=== PATIENT | male | born 1955 | race African-American/Black ===

== ENCOUNTER 2017-09-01 17:48 | Inpatient (IN) | payer OTHER ==
[~2017-09-01] VITALS: Ht 172.7 cm; Wt 102.7 kg
[2017-09-01] MEDS ORDERED: SODIUM CHLORIDE 0.9% 1,000 ML IVB ONE (19:49)
[2017-09-01 19:53] LABS: Hematocrit 52.1 % (41.0-53.0); Mean Corpuscular Hemoglobin 32.1 pg (28.0-32.0); Mean Corpuscular Hgb Conc. 32.6 g/dL (32.0-36.0); Mean Corpuscular Volume 98.5 fL (80.0-100.0); Platelet Count (auto) 342 10^3/uL (140-450); Red Blood Cells 5.29 10^6/uL (4.5-5.90); Red Cell Distribution Width 12.8 % (11.8-14.3); White Blood Cell 24.2 10^3/uL (4.4-10.8)
[2017-09-01 20:02] LABS: Band Neutrophils % (manual) 0; Basophils % (manual) 0 (0.0-2.0); Blast Cells 0; Eosinophils % (manual) 0 (0-7); Metamyelocytes % 0; Myelocytes % 0; Promyelocytes % 0; Reactive Lymphocytes 0
[2017-09-01 20:05] LABS: Lymphocytes % (manual) 9 (10.0-50.0); Monocytes % (manual) 7 (0-12)
[2017-09-01 20:06] LABS: Albumin 3.5 g/dL (3.4-5.0); BUN/Creatinine Ratio 8.8; Calcium 8.6 mg/dL (8.5-10.1); Potassium 3.8 mmol/L (3.5-5.1)
[2017-09-01 20:09] LABS: Bilirubin, Total 0.7 mg/dL (0.2-1.0); Total Protein 7.4 g/dL (6.4-8.2)
[2017-09-01 20:32] LABS: INR 1.07 (0.9-1.15); Partial Thromboplastin Time 27.5 sec (23.78-33.04); Prothrombin Time 11.4 sec (9.27-12.13)
[2017-09-01 20:50] LABS: Magnesium 1.9 mg/dL (1.6-2.6)
[2017-09-01] MEDS ORDERED: ONDANSETRON HCL 4 MG/2 ML VIAL IV ONE (21:00)
[2017-09-01] MEDS ORDERED: MORPHINE SULFATE 8mg/ml INJ SDV IV ONE (21:00)
[2017-09-01] MEDS ORDERED: ACETAMINOPHEN 325 MG TAB PO PRN (21:15)
[2017-09-01] MEDS ORDERED: cefTRIAXone 1GM/10ml IVPUSH 10 ML IV ONE (21:15)
[2017-09-01] MEDS ORDERED: metroNIDAZOLE 500MG/100ML 100 ML IV ONE (21:15)
[2017-09-01] MEDS ORDERED: MORPHINE SULFATE 8mg/ml INJ SDV IV PRN (21:15)
[2017-09-01] MEDS ORDERED: NITROGLYCERIN 0.4 MG SL TAB SL PRN (21:15)
[2017-09-01 21:31] LABS: Urine Bacteria NONE SEEN /hpf (None Seen); Urine Blood Negative /uL (Negative); Urine Hyaline Cast FEW /lpf (0 - 2); Urine Mucus FEW (None Seen); Urine Specific Gravity 1.024 (1.001-1.035); Urine WBC 4 /hpf (0 - 3)
[2017-09-01] MEDS: SODIUM CHLORIDE 0.9% 1,000 ML IV SCH (21:38)
[2017-09-01] MEDS: metroNIDAZOLE 500MG/100ML 100 ML IV SCH (21:38)
[2017-09-01] MEDS ORDERED: GASTROGRAFIN 120 ML SOL ONE (21:43)
[2017-09-01 23:40] VITALS: BP 94/62
[2017-09-01 23:53] LABS: Lactic Acid w/Reflex 7.5 mmol/L (0.4-2.0)
[2017-09-02 05:00] VITALS: BP 101/80
[2017-09-02] MEDS: metroNIDAZOLE 500MG/100ML 100 ML IV SCH ×3 (06:03→22:14)
[2017-09-02 06:46] LABS: Red Blood Cells 5.51 10^6/uL (4.5-5.90)
[2017-09-02 06:48] LABS: Hematocrit 51.9 % (41.0-53.0); Hemoglobin 18.2 g/dL (13.5-17.5); Mean Corpuscular Volume 94.2 fL (80.0-100.0); Platelet Count (auto) 391 10^3/uL (140-450); Red Cell Distribution Width 12.5 % (11.8-14.3)
[2017-09-02 06:58] LABS: White Blood Cell 33.3 10^3/uL (4.4-10.8)
[2017-09-02 06:59] LABS: Basophils % (manual) 0 (0.0-2.0); Eosinophils % (manual) 0 (0-7); Metamyelocytes % 0
[2017-09-02 07:00] LABS: Blast Cells 0; Myelocytes % 0; Promyelocytes % 0; Reactive Lymphocytes 0
[2017-09-02 07:05] LABS: Albumin 3.4 g/dL (3.4-5.0); BUN/Creatinine Ratio 11.4; Calcium 8.6 mg/dL (8.5-10.1)
[2017-09-02 07:08] LABS: Bilirubin, Total 0.6 mg/dL (0.2-1.0); Total Protein 7.3 g/dL (6.4-8.2)
[2017-09-02] MEDS ORDERED: LEV50T PO (07:20)
[2017-09-02 08:19] VITALS: BP 142/107
[2017-09-02] MEDS: SODIUM CHLORIDE 0.9% 1,000 ML IV SCH (08:22)
[2017-09-02] MEDS: PANTOPRAZOLE 40 MG/10 ML VIAL IV SCH (09:21)
[2017-09-02] MEDS: ENOXAPARIN SOD 40 MG/0.4 ML SYRINGE SC SCH (09:22)
[2017-09-02] MEDS: MORPHINE SULFATE 8mg/ml INJ SDV IV PRN ×2 (09:32→22:15)
[2017-09-02] MEDS ORDERED: SODIUM CHLORIDE 0.9% 1,000 ML IV ONE (10:45)
[2017-09-02 11:04] LABS: Band Neutrophils % (manual) 3
[2017-09-02 11:05] LABS: Lymphocytes % (manual) 11 (10.0-50.0); Monocytes % (manual) 13 (0-12)
[2017-09-02] MEDS ORDERED: PIPERACILLIN-TAZOB 3.375GM 100 ML IV ONE (13:45)
[2017-09-02 14:20] VITALS: BP 100/57
[2017-09-02] MEDS: D5W/ SOD CHL 0.9%/KCL 20MEQ 1,000 ML IV SCH (15:20)
[2017-09-02 17:18] VITALS: BP 153/77
[2017-09-02] MEDS ORDERED: PIPERACILLIN-TAZOB 3.375GM 100 ML IV SCH (18:00)
[2017-09-02] MEDS: PIPERACILLIN-TAZOB 3.375GM 100 ML IV SCH (18:04)
[2017-09-02 20:00] VITALS: BP 118/66
[2017-09-02 22:00] VITALS: BP 118/66
[2017-09-02] MEDS ORDERED: cefTRIAXone 1GM/10ml IVPUSH 10 ML IV SCH (22:00)
[2017-09-03] MEDS: PIPERACILLIN-TAZOB 3.375GM 100 ML IV SCH ×5 (00:03→23:33)
[2017-09-03] MEDS: D5W/ SOD CHL 0.9%/KCL 20MEQ 1,000 ML IV SCH ×4 (00:04→23:34)
[2017-09-03 05:00] VITALS: BP 114/63
[2017-09-03] MEDS: metroNIDAZOLE 500MG/100ML 100 ML IV SCH ×3 (05:38→21:17)
[2017-09-03 06:27] LABS: Basophils # (auto) 0.1 uL; Basophils % (auto) 0.3 % (0.0-2.0); Eosinophils # (auto) 0 uL; Hematocrit 35.7 % (41.0-53.0); Hemoglobin 12.5 g/dL (13.5-17.5); Lymphocytes # (auto) 2.6 uL; Lymphocytes % (auto) 11.9 % (10.0-50.0); Mean Corpuscular Hemoglobin 32.2 pg (28.0-32.0); Mean Corpuscular Hgb Conc. 34.9 g/dL (32.0-36.0); Mean Corpuscular Volume 92.1 fL (80.0-100.0); Monocytes # (auto) 2.5 uL; Monocytes % (auto) 11.7 % (0.0-12.0); Neutrophils # (auto) 16.4 uL; Neutrophils % (auto) 76.1 % (37.0-80.0); Nucleated Red Blood Cells % 0.1 %; Platelet Count (auto) 287 10^3/uL (140-450); Red Blood Cells 3.87 10^6/uL (4.5-5.90); Red Cell Distribution Width 12.4 % (11.8-14.3); White Blood Cell 21.5 10^3/uL (4.4-10.8)
[2017-09-03 06:41] LABS: Albumin 2.9 g/dL (3.4-5.0); Calcium 8.1 mg/dL (8.5-10.1); Potassium 4.2 mmol/L (3.5-5.1)
[2017-09-03 06:42] LABS: BUN/Creatinine Ratio 19.5
[2017-09-03 06:45] LABS: Bilirubin, Total 0.8 mg/dL (0.2-1.0); Total Protein 6.1 g/dL (6.4-8.2)
[2017-09-03 09:00] VITALS: BP 126/88
[2017-09-03] MEDS: PANTOPRAZOLE 40 MG/10 ML VIAL IV SCH (09:52)
[2017-09-03] MEDS: ENOXAPARIN SOD 40 MG/0.4 ML SYRINGE SC SCH (09:52)
[2017-09-03 13:00] VITALS: BP 109/62
[2017-09-03 16:38] VITALS: BP 103/57
[2017-09-03] MEDS: MORPHINE SULFATE 8mg/ml INJ SDV IV PRN (21:17)
[2017-09-03 22:04] VITALS: BP 95/71
[2017-09-04] VITALS (17 sets, daily range): BP systolic 82–119; BP diastolic 28–77
[2017-09-04] MEDS: metroNIDAZOLE 500MG/100ML 100 ML IV SCH ×3 (05:10→21:09)
[2017-09-04 06:19] LABS: Basophils # (auto) 0.1 uL; Basophils % (auto) 0.4 % (0.0-2.0); Eosinophils # (auto) 0.1 uL; Eosinophils % (auto) 0.5 % (0.0-7.0); Hematocrit 32.6 % (41.0-53.0); Hemoglobin 11.2 g/dL (13.5-17.5); Lymphocytes # (auto) 2.4 uL; Mean Corpuscular Hemoglobin 32.4 pg (28.0-32.0); Mean Corpuscular Hgb Conc. 34.3 g/dL (32.0-36.0); Mean Corpuscular Volume 94.4 fL (80.0-100.0); Monocytes # (auto) 2.1 uL; Monocytes % (auto) 13.8 % (0.0-12.0); Neutrophils # (auto) 10.4 uL; Neutrophils % (auto) 69.3 % (37.0-80.0); Nucleated Red Blood Cells % 0.2 %; Platelet Count (auto) 267 10^3/uL (140-450); Red Blood Cells 3.46 10^6/uL (4.5-5.90); Red Cell Distribution Width 12.5 % (11.8-14.3)
[2017-09-04] MEDS: PIPERACILLIN-TAZOB 3.375GM 100 ML IV SCH ×3 (06:28→18:24)
[2017-09-04 06:43] LABS: BUN/Creatinine Ratio 9.7; Bilirubin, Total 1.3 mg/dL (0.2-1.0); Calcium 8.3 mg/dL (8.5-10.1); Potassium 3.9 mmol/L (3.5-5.1); Total Protein 6.1 g/dL (6.4-8.2)
[2017-09-04] MEDS: D5W/ SOD CHL 0.9%/KCL 20MEQ 1,000 ML IV SCH ×2 (07:25→18:22)
[2017-09-04] MEDS: ENOXAPARIN SOD 40 MG/0.4 ML SYRINGE SC SCH (09:02)
[2017-09-04] MEDS: PANTOPRAZOLE 40 MG/10 ML VIAL IV SCH (09:43)
[2017-09-04] MEDS ORDERED: ceFAZolin 1GM/100ML 100 ML IV ONE (09:51)
[2017-09-04] MEDS ORDERED: HYDROmorphone HCL 2 MG/ML VL ONE (11:44)
[2017-09-04] MEDS ORDERED: fentaNYL CITRATE 100 MCG/2 ML VL ONE (11:44)
[2017-09-04] MEDS ORDERED: MIDAZOLAM HCL 1MG/1ML-2 ML VIAL ONE ×2 (11:45→15:03)
[2017-09-04] MEDS ORDERED: ROCURONIUM 10MG/ML 10ML VIAL IV ONE (11:45)
[2017-09-04] MEDS ORDERED: PROPOFOL 10 MG/ML 20 ML IV ONE (11:45)
[2017-09-04] MEDS ORDERED: fentaNYL CITRATE 10 ML ONE (11:45)
[2017-09-04] MEDS ORDERED: ONDANSETRON HCL 4 MG/2 ML VIAL ONE (11:45)
[2017-09-04] MEDS ORDERED: SUCCINYLCHOLINE CHLORIDE 20 MG/ML 10ML VIAL IV ONE (12:10)
[2017-09-04] MEDS ORDERED: METOCLOPRAMIDE HCL 5MG/ml INJ 2ml VIAL IV ONE (12:15)
[2017-09-04] MEDS ORDERED: HYDROmorphone HCL 2 MG/ML VL IV PRN (12:15)
[2017-09-04] MEDS ORDERED: POVIDONE IODINE 10 % TOPICAL OINT 30GM TOP ONE (12:31)
[2017-09-04] MEDS ORDERED: GLYCOPYRROLATE 0.2 MG/ML 1ML VIAL ONE (13:23)
[2017-09-04] MEDS ORDERED: NEOSTIGMINE 1 MG/ML INJ (10mg/10ML VIAL) ONE (13:23)
[2017-09-04] MEDS ORDERED: MORPHINE SULFATE INJECTION 1 ML ONE (15:03)
[2017-09-04] MEDS ORDERED: MORPHINE SULFATE 8mg/ml INJ SDV IV PRN (15:15)
[2017-09-04] MEDS ORDERED: NITROGLYCERIN 0.4 MG SL TAB SL PRN (15:15)
[2017-09-04 15:54] LABS: Basophils # (auto) 0.1 uL; Basophils % (auto) 0.6 % (0.0-2.0); Eosinophils # (auto) 0.1 uL; Eosinophils % (auto) 0.5 % (0.0-7.0); Hematocrit 35.8 % (41.0-53.0); Hemoglobin 12.2 g/dL (13.5-17.5); Lymphocytes # (auto) 2.8 uL; Lymphocytes % (auto) 21.3 % (10.0-50.0); Mean Corpuscular Hemoglobin 32.4 pg (28.0-32.0); Mean Corpuscular Volume 95.4 fL (80.0-100.0); Monocytes # (auto) 1.3 uL; Monocytes % (auto) 9.9 % (0.0-12.0); Neutrophils # (auto) 8.9 uL; Neutrophils % (auto) 67.7 % (37.0-80.0); Nucleated Red Blood Cells % 0.2 %; Platelet Count (auto) 302 10^3/uL (140-450); Red Blood Cells 3.75 10^6/uL (4.5-5.90); Red Cell Distribution Width 12.4 % (11.8-14.3); White Blood Cell 13.2 10^3/uL (4.4-10.8)
[2017-09-04] MEDS ORDERED: MIDAZOLAM DRIP 50 mg/50mL 50 ML IV ONE (15:54)
[2017-09-04 16:01] LABS: Anion Gap 10 (5-15); Blood Urea Nitrogen 8 mg/dL (7-18); Carbon Dioxide 24 mmol/L (21-32); Chloride 112 mmol/L (98-107); GFR African American 111 mL/min; GFR Non-African American 91 mL/min; Glucose 186 mg/dL (74-106); Potassium 3.1 mmol/L (3.5-5.1); Sodium 146 mmol/L (136-145)
[2017-09-04] MEDS: MIDAZOLAM DRIP 50 mg/50mL 50 ML IV SCH (17:35)
[2017-09-04] MEDS: MORPHINE SULFATE 8mg/ml INJ SDV IV PRN (18:22)
[2017-09-04] MEDS ORDERED: POTASSIUM CHL 20MEQ/100ML 100 ML IV ONE (18:45)
[2017-09-05] VITALS (57 sets, daily range): BP systolic 95–131; BP diastolic 52–88
[2017-09-05] MEDS: MIDAZOLAM DRIP 50 mg/50mL 50 ML IV SCH (01:30)
[2017-09-05] MEDS: D5W/ SOD CHL 0.9%/KCL 20MEQ 1,000 ML IV SCH ×3 (03:29→13:34)
[2017-09-05 04:11] LABS: Basophils # (auto) 0.1 uL; Basophils % (auto) 0.9 % (0.0-2.0); Eosinophils # (auto) 0.1 uL; Eosinophils % (auto) 0.4 % (0.0-7.0); Hematocrit 35.9 % (41.0-53.0); Hemoglobin 12.4 g/dL (13.5-17.5); Mean Corpuscular Hemoglobin 32.2 pg (28.0-32.0); Mean Corpuscular Hgb Conc. 34.5 g/dL (32.0-36.0); Mean Corpuscular Volume 93.3 fL (80.0-100.0); Monocytes # (auto) 1.6 uL; Monocytes % (auto) 11.9 % (0.0-12.0); Neutrophils # (auto) 9.7 uL; Neutrophils % (auto) 71.8 % (37.0-80.0); Nucleated Red Blood Cells % 0.1 %; Platelet Count (auto) 235 10^3/uL (140-450); Red Blood Cells 3.85 10^6/uL (4.5-5.90); Red Cell Distribution Width 12.4 % (11.8-14.3); White Blood Cell 13.5 10^3/uL (4.4-10.8)
[2017-09-05 04:41] LABS: Alanine Aminotransferase 21 U/L (16-61); Albumin 2.8 g/dL (3.4-5.0); Alkaline Phosphatase 59 U/L (45-117); Anion Gap 8 (5-15); Aspartate Aminotransferase 31 U/L (15-37); BUN/Creatinine Ratio 7.4; Blood Urea Nitrogen 7 mg/dL (7-18); Calcium 7.7 mg/dL (8.5-10.1); Carbon Dioxide 25 mmol/L (21-32); Chloride 115 mmol/L (98-107); GFR African American 104 mL/min; GFR Non-African American 86 mL/min; Glucose 130 mg/dL (74-106); Potassium 4.5 mmol/L (3.5-5.1); Sodium 148 mmol/L (136-145); Total Protein 5.8 g/dL (6.4-8.2)
[2017-09-05] MEDS: metroNIDAZOLE 500MG/100ML 100 ML IV SCH ×3 (06:00→23:17)
[2017-09-05] MEDS: PIPERACILLIN-TAZOB 3.375GM 100 ML IV SCH ×4 (06:00→17:46)
[2017-09-05] MEDS ORDERED: MORPHINE SULFATE 8mg/ml INJ SDV IV ONE (08:45)
[2017-09-05] MEDS: PANTOPRAZOLE 40 MG/10 ML VIAL IV SCH (09:46)
[2017-09-05] MEDS: ENOXAPARIN SOD 60 MG/0.6 ML SYRINGE SC SCH (09:47)
[2017-09-05] MEDS: MORPHINE SULFATE 8mg/ml INJ SDV IV PRN ×2 (13:49→23:18)
[2017-09-05] MEDS ORDERED: MORPHINE SULFATE 4 MG/ML SYR/VIAL ONE (23:10)
[2017-09-05] MEDS: ONDANSETRON HCL 4 MG/2 ML VIAL IV PRN (23:18)
[2017-09-06] MEDS: PIPERACILLIN-TAZOB 3.375GM 100 ML IV SCH ×4 (00:09→18:43)
[2017-09-06] MEDS: D5W/ SOD CHL 0.9%/KCL 20MEQ 1,000 ML IV SCH ×4 (02:31→21:51)
[2017-09-06 05:41] VITALS: BP 100/58
[2017-09-06] MEDS: metroNIDAZOLE 500MG/100ML 100 ML IV SCH ×3 (05:42→21:50)
[2017-09-06 06:25] LABS: Basophils # (auto) 0.1 uL; Basophils % (auto) 0.6 % (0.0-2.0); Eosinophils # (auto) 0.1 uL; Eosinophils % (auto) 1.1 % (0.0-7.0); Hematocrit 32.5 % (41.0-53.0); Hemoglobin 11.2 g/dL (13.5-17.5); Lymphocytes # (auto) 1.8 uL; Lymphocytes % (auto) 14.9 % (10.0-50.0); Mean Corpuscular Hemoglobin 32.6 pg (28.0-32.0); Mean Corpuscular Hgb Conc. 34.5 g/dL (32.0-36.0); Mean Corpuscular Volume 94.6 fL (80.0-100.0); Monocytes # (auto) 2.1 uL; Monocytes % (auto) 16.9 % (0.0-12.0); Neutrophils # (auto) 8.1 uL; Neutrophils % (auto) 66.5 % (37.0-80.0); Nucleated Red Blood Cells % 0.1 %; Platelet Count (auto) 309 10^3/uL (140-450); Red Blood Cells 3.44 10^6/uL (4.5-5.90); Red Cell Distribution Width 12.6 % (11.8-14.3); White Blood Cell 12.2 10^3/uL (4.4-10.8)
[2017-09-06 06:37] LABS: Potassium 3.6 mmol/L (3.5-5.1)
[2017-09-06 06:41] LABS: Albumin 2.7 g/dL (3.4-5.0); BUN/Creatinine Ratio 3.8; Calcium 8.1 mg/dL (8.5-10.1)
[2017-09-06 06:44] LABS: Bilirubin, Total 0.9 mg/dL (0.2-1.0); Total Protein 6.1 g/dL (6.4-8.2)
[2017-09-06 08:00] VITALS: BP 125/77
[2017-09-06 09:00] VITALS: BP 83/43
[2017-09-06] MEDS: LEVOTHYROXINE SODIUM 25 MCG TAB PO SCH (10:22)
[2017-09-06] MEDS: ENOXAPARIN SOD 60 MG/0.6 ML SYRINGE SC SCH (10:23)
[2017-09-06] MEDS: PANTOPRAZOLE 40 MG/10 ML VIAL IV SCH (10:23)
[2017-09-06 13:00] VITALS: BP 125/77
[2017-09-06 17:47] VITALS: BP 104/60
[2017-09-06] MEDS ORDERED: MORPHINE SULFATE 10 MG/ML INJ 1ML SDV IV PRN (20:45)
[2017-09-06] MEDS: ATORVASTATIN 20 MG TAB PO SCH (21:50)
[2017-09-06] MEDS: MORPHINE SULFATE 10 MG/ML INJ 1ML SDV IV PRN (21:50)
[2017-09-06 22:00] VITALS: BP 112/76
[2017-09-07] MEDS: PIPERACILLIN-TAZOB 3.375GM 100 ML IV SCH ×5 (00:11→23:55)
[2017-09-07] MEDS: MORPHINE SULFATE 10 MG/ML INJ 1ML SDV IV PRN (02:48)
[2017-09-07 05:00] VITALS: BP 117/59
[2017-09-07] MEDS: metroNIDAZOLE 500MG/100ML 100 ML IV SCH ×3 (05:42→21:10)
[2017-09-07] MEDS: D5W/ SOD CHL 0.9%/KCL 20MEQ 1,000 ML IV SCH ×2 (05:42→16:33)
[2017-09-07] MEDS: LEVOTHYROXINE SODIUM 25 MCG TAB PO SCH (06:53)
[2017-09-07 07:10] LABS: Basophils # (auto) 0.1 uL; Basophils % (auto) 0.5 % (0.0-2.0); Eosinophils # (auto) 0.1 uL; Eosinophils % (auto) 1.3 % (0.0-7.0); Hematocrit 29.3 % (41.0-53.0); Hemoglobin 10.3 g/dL (13.5-17.5); Lymphocytes # (auto) 1.7 uL; Lymphocytes % (auto) 15.5 % (10.0-50.0); Mean Corpuscular Hemoglobin 33.2 pg (28.0-32.0); Mean Corpuscular Volume 94.7 fL (80.0-100.0); Monocytes # (auto) 1.9 uL; Monocytes % (auto) 17.4 % (0.0-12.0); Neutrophils # (auto) 7.3 uL; Neutrophils % (auto) 65.3 % (37.0-80.0); Nucleated Red Blood Cells % 0.1 %; Platelet Count (auto) 292 10^3/uL (140-450); Red Blood Cells 3.09 10^6/uL (4.5-5.90); Red Cell Distribution Width 12.8 % (11.8-14.3); White Blood Cell 11.2 10^3/uL (4.4-10.8)
[2017-09-07 07:28] LABS: Potassium 3.4 mmol/L (3.5-5.1)
[2017-09-07 07:31] LABS: Albumin 2.6 g/dL (3.4-5.0); BUN/Creatinine Ratio 3.3; Calcium 8.1 mg/dL (8.5-10.1)
[2017-09-07 07:44] LABS: Bilirubin, Total 0.6 mg/dL (0.2-1.0); Total Protein 5.9 g/dL (6.4-8.2)
[2017-09-07 09:00] VITALS: BP 114/73
[2017-09-07] MEDS: ENOXAPARIN SOD 60 MG/0.6 ML SYRINGE SC SCH ×2 (10:00→11:08)
[2017-09-07] MEDS: PANTOPRAZOLE 40 MG/10 ML VIAL IV SCH (11:08)
[2017-09-07 13:00] VITALS: BP 89/37
[2017-09-07] MEDS: ONDANSETRON HCL 4 MG/2 ML VIAL IV PRN ×2 (14:31→21:15)
[2017-09-07 17:30] VITALS: BP 102/65
[2017-09-07] MEDS: ATORVASTATIN 20 MG TAB PO SCH (21:10)
[2017-09-07] MEDS ORDERED: MORPHINE SULFATE 4 MG/ML SYR/VIAL ONE (21:13)
[2017-09-07 22:00] VITALS: BP 105/61
[2017-09-08] MEDS: D5W/ SOD CHL 0.9%/KCL 20MEQ 1,000 ML IV SCH (03:05)
[2017-09-08 05:00] VITALS: BP 108/70
[2017-09-08] MEDS: ONDANSETRON HCL 4 MG/2 ML VIAL IV PRN ×3 (05:16→12:32)
[2017-09-08] MEDS: HYDROcodone-ACET 5/325MG TAB PO PRN (05:16)
[2017-09-08] MEDS: PIPERACILLIN-TAZOB 3.375GM 100 ML IV SCH ×4 (06:00→23:36)
[2017-09-08] MEDS: metroNIDAZOLE 500MG/100ML 100 ML IV SCH ×3 (06:00→21:30)
[2017-09-08 06:39] LABS: Basophils # (auto) 0 uL; Basophils % (auto) 0.4 % (0.0-2.0); Eosinophils # (auto) 0.2 uL; Eosinophils % (auto) 2.1 % (0.0-7.0); Hematocrit 28.5 % (41.0-53.0); Hemoglobin 10.1 g/dL (13.5-17.5); Lymphocytes # (auto) 1.9 uL; Mean Corpuscular Hemoglobin 33.4 pg (28.0-32.0); Mean Corpuscular Hgb Conc. 35.4 g/dL (32.0-36.0); Mean Corpuscular Volume 94.5 fL (80.0-100.0); Monocytes # (auto) 1.8 uL; Monocytes % (auto) 15.3 % (0.0-12.0); Neutrophils # (auto) 7.8 uL; Neutrophils % (auto) 66.2 % (37.0-80.0); Nucleated Red Blood Cells % 0.1 %; Platelet Count (auto) 321 10^3/uL (140-450); Red Blood Cells 3.01 10^6/uL (4.5-5.90); Red Cell Distribution Width 12.5 % (11.8-14.3); White Blood Cell 11.8 10^3/uL (4.4-10.8)
[2017-09-08 06:49] LABS: Albumin 2.8 g/dL (3.4-5.0); BUN/Creatinine Ratio 3.2; Bilirubin, Total 0.5 mg/dL (0.2-1.0); Calcium 7.8 mg/dL (8.5-10.1); Potassium 3.4 mmol/L (3.5-5.1)
[2017-09-08] MEDS: LEVOTHYROXINE SODIUM 25 MCG TAB PO SCH (07:06)
[2017-09-08] MEDS ORDERED: POTASSIUM CHL 10% (20 MEQ/15ML) 15ml ORAL SOLN PO ONE (08:30)
[2017-09-08 09:00] VITALS: BP 128/72
[2017-09-08] MEDS: ENOXAPARIN SOD 60 MG/0.6 ML SYRINGE SC SCH (10:00)
[2017-09-08] MEDS: PANTOPRAZOLE 40 MG/10 ML VIAL IV SCH (10:47)
[2017-09-08 13:00] VITALS: BP 102/63
[2017-09-08 17:00] VITALS: BP 114/75
[2017-09-08 20:00] VITALS: BP 128/81
[2017-09-08] MEDS: ATORVASTATIN 20 MG TAB PO SCH (21:30)
[2017-09-08] MEDS ORDERED: TEMAZEPAM 15 MG CAP PO PRN (21:45)
[2017-09-08 22:13] VITALS: BP 128/81
[2017-09-09] MEDS: ONDANSETRON HCL 4 MG/2 ML VIAL IV PRN (02:37)
[2017-09-09] MEDS: metroNIDAZOLE 500MG/100ML 100 ML IV SCH ×3 (05:24→21:41)
[2017-09-09 05:39] VITALS: BP 120/76
[2017-09-09] MEDS: LEVOTHYROXINE SODIUM 25 MCG TAB PO SCH (06:31)
[2017-09-09] MEDS: PIPERACILLIN-TAZOB 3.375GM 100 ML IV SCH ×4 (06:31→23:38)
[2017-09-09 07:36] LABS: Basophils # (auto) 0.1 uL; Basophils % (auto) 0.8 % (0.0-2.0); Eosinophils # (auto) 0.1 uL; Hematocrit 30.7 % (41.0-53.0); Hemoglobin 10.5 g/dL (13.5-17.5); Lymphocytes # (auto) 1.7 uL; Lymphocytes % (auto) 13.4 % (10.0-50.0); Mean Corpuscular Hemoglobin 32.4 pg (28.0-32.0); Mean Corpuscular Hgb Conc. 34.3 g/dL (32.0-36.0); Mean Corpuscular Volume 94.4 fL (80.0-100.0); Monocytes # (auto) 1.6 uL; Monocytes % (auto) 12.9 % (0.0-12.0); Neutrophils # (auto) 8.9 uL; Neutrophils % (auto) 71.9 % (37.0-80.0); Nucleated Red Blood Cells % 0.1 %; Platelet Count (auto) 370 10^3/uL (140-450); Red Blood Cells 3.25 10^6/uL (4.5-5.90); Red Cell Distribution Width 12.7 % (11.8-14.3); White Blood Cell 12.4 10^3/uL (4.4-10.8)
[2017-09-09 08:06] LABS: Albumin 2.9 g/dL (3.4-5.0); BUN/Creatinine Ratio 3.2; Calcium 8.3 mg/dL (8.5-10.1); Potassium 3.4 mmol/L (3.5-5.1)
[2017-09-09 08:08] LABS: Bilirubin, Total 0.5 mg/dL (0.2-1.0); Total Protein 6.3 g/dL (6.4-8.2)
[2017-09-09 08:31] VITALS: BP 122/65
[2017-09-09] MEDS: ENOXAPARIN SOD 60 MG/0.6 ML SYRINGE SC SCH (09:26)
[2017-09-09] MEDS ORDERED: POTASSIUM CHL 20 Meq TABLET PO ONE (09:30)
[2017-09-09] MEDS: PANTOPRAZOLE 40 MG/10 ML VIAL IV SCH (09:40)
[2017-09-09 12:50] VITALS: BP 156/84
[2017-09-09] MEDS: HYDROcodone-ACET 5/325MG TAB PO PRN (15:21)
[2017-09-09 17:00] VITALS: BP 126/73
[2017-09-09 20:00] VITALS: BP 112/70
[2017-09-09] MEDS: ATORVASTATIN 20 MG TAB PO SCH (21:41)
[2017-09-09 22:00] VITALS: BP 112/70
[2017-09-10 04:55] VITALS: BP 113/57
[2017-09-10] MEDS: metroNIDAZOLE 500MG/100ML 100 ML IV SCH (05:18)
[2017-09-10] MEDS: PIPERACILLIN-TAZOB 3.375GM 100 ML IV SCH (06:22)
[2017-09-10] MEDS: LEVOTHYROXINE SODIUM 25 MCG TAB PO SCH (06:22)
[2017-09-10 07:23] LABS: Basophils # (auto) 0.1 uL; Basophils % (auto) 0.5 % (0.0-2.0); Eosinophils # (auto) 0.2 uL; Eosinophils % (auto) 1.7 % (0.0-7.0); Hematocrit 32.5 % (41.0-53.0); Hemoglobin 11.2 g/dL (13.5-17.5); Lymphocytes # (auto) 2.3 uL; Lymphocytes % (auto) 18.9 % (10.0-50.0); Mean Corpuscular Hemoglobin 32.9 pg (28.0-32.0); Mean Corpuscular Hgb Conc. 34.5 g/dL (32.0-36.0); Mean Corpuscular Volume 95.4 fL (80.0-100.0); Monocytes # (auto) 1.9 uL; Monocytes % (auto) 15.1 % (0.0-12.0); Neutrophils # (auto) 7.8 uL; Neutrophils % (auto) 63.8 % (37.0-80.0); Nucleated Red Blood Cells % 0.1 %; Platelet Count (auto) 382 10^3/uL (140-450); Red Blood Cells 3.41 10^6/uL (4.5-5.90); White Blood Cell 12.3 10^3/uL (4.4-10.8)
[2017-09-10 07:51] VITALS: BP 116/56
[2017-09-10 07:53] LABS: Albumin 2.9 g/dL (3.4-5.0); BUN/Creatinine Ratio 5.6; Bilirubin, Total 0.7 mg/dL (0.2-1.0); Calcium 8.1 mg/dL (8.5-10.1); Potassium 3.3 mmol/L (3.5-5.1); Total Protein 6.3 g/dL (6.4-8.2)
[2017-09-10 08:41] VITALS: BP 116/56
[2017-09-10] MEDS ORDERED: POTASSIUM CHL 20 Meq TABLET PO ONE (09:15)
[2017-09-10] MEDS: PANTOPRAZOLE 40 MG/10 ML VIAL IV SCH (09:23)
[2017-09-10] MEDS: ENOXAPARIN SOD 60 MG/0.6 ML SYRINGE SC SCH (09:23)
[2017-09-10 10:27] VITALS: BP 116/56
== END 2017-09-10 11:00 | disposition home or self-care (01) | DRG 853 ==
LOC: EDBD 17:48 → ER 17:48 → TELE 17:49 → TELE-EAST 23:38 → ICU WEST 09-04 17:35 → TELE-CENTR 09-05 20:59
PROVIDERS: ADMIT Nurse Practitioner; ATTEND Family Medicine
PROC: 0WPF0JZ Removal of Synthetic Substitute from Abdominal Wall, Open Approach (ICD-10-PCS; 2017-09-04)
PROC: 0DNU4ZZ Release Omentum, Percutaneous Endoscopic Approach (ICD-10-PCS; 2017-09-04)
PROC: 0DN80ZZ Release Small Intestine, Open Approach (ICD-10-PCS; 2017-09-04)
PROC: 5A1935Z Respiratory Ventilation, Less than 24 Consecutive Hours (ICD-10-PCS; 2017-09-04)
PROC: 0DNW4ZZ Release Peritoneum, Percutaneous Endoscopic Approach (ICD-10-PCS; principal; 2017-09-04 12:10)
DX: A41.9 Sepsis, unspecified organism (principal); J96.00 Acute respiratory failure, unspecified whether with hypoxia or hypercapnia; N17.9 Acute kidney failure, unspecified; K46.0 Unspecified abdominal hernia with obstruction, without gangrene; E03.9 Hypothyroidism, unspecified; E78.00 Pure hypercholesterolemia, unspecified; K80.20 Calculus of gallbladder without cholecystitis without obstruction; Z53.29 Procedure and treatment not carried out because of patient's decision for other reasons; F17.210 Nicotine dependence, cigarettes, uncomplicated; I11.9 Hypertensive heart disease without heart failure; Z60.2 Problems related to living alone; F32.9 Major depressive disorder, single episode, unspecified; K66.0 Peritoneal adhesions (postprocedural) (postinfection); R65.20 Severe sepsis without septic shock; Z80.9 Family history of malignant neoplasm, unspecified; Z82.49 Family history of ischemic heart disease and other diseases of the circulatory system; Z85.89 Personal history of malignant neoplasm of other organs and systems
CPT/HCPCS: 36415; 36600; 71045; 74176; 74250; 80048; 80053; 81001; 82150; 82378; 82805; 82962; 83605; 83690; 83735; 84484; 85007; 85025; 85027; 85610; 85730; 86850; 86900; 86901; 87040; 87070; 87081; 87205; 93005; 93306; 94002; 94003; 94761; 96361; 96365; 96375; 97116; 97163; C9113; J0330; J0690; J2250; J2270; J2405; J2543; J2704; J3480; J3490

== ENCOUNTER 2024-01-05 09:36 | Inpatient (IN) | payer OTHER ==
[~2024-01-05] VITALS: Ht 172.7 cm; Wt 69.1 kg
[~2024-01-05 09:36] MED LIST: LEVO-848 PO
[2024-01-05 10:03] VITALS: PULSE 102; RESP 33; O2SAT 92
[2024-01-05] MEDS: methylPREDNISolone SOD SUCC 125 MG/2 ML VL IV ONE ×2 (10:40→16:18)
[2024-01-05] MEDS: FUROSEMIDE 20 MG/2 ML VIAL IV ONE (10:40)
[2024-01-05 11:17] LABS: Basophils # (auto) 0.1 10 ^3/uL (0-0.2); Basophils % (auto) 0.5 % (0.0-2.0); Eosinophils # (auto) 0 10 ^3/uL (0-0.8); Eosinophils % (auto) 0.1 % (0.0-7.0); Hematocrit 29.6 % (41.0-53.0); Hemoglobin 9.9 g/dL (13.5-17.5); Lymphocytes # (auto) 0.6 10 ^3/uL (0.4-5.4); Lymphocytes % (auto) 5.3 % (10.0-50.0); Mean Corpuscular Hemoglobin 27.2 pg (28.0-32.0); Mean Corpuscular Hgb Conc. 33.3 g/dL (32.0-36.0); Mean Corpuscular Volume 81.6 fL (80.0-100.0); Monocytes # (auto) 1.5 10 ^3/uL (0-1.3); Neutrophils # (auto) 8.5 10 ^3/uL (1.6-8.6); Neutrophils % (auto) 80.1 % (37.0-80.0); Nucleated Red Blood Cells % 0.1 %; Platelet Count (auto) 546 10^3/uL (140-450); Red Blood Cells 3.62 10^6/uL (4.5-5.90); White Blood Cell 10.7 10^3/uL (4.4-10.8)
[2024-01-05 11:18] LABS: Red Cell Distribution Width 20.9 % (11.8-14.3)
[2024-01-05 11:22] LABS: Chloride 101 mmol/L (98-107); Sodium 140 mmol/L (136-145)
[2024-01-05 11:23] LABS: Anion Gap 10 (5-15); Calcium 9.1 mg/dL (8.7-10.4); Carbon Dioxide 29 mmol/L (20-31)
[2024-01-05 11:28] LABS: BUN/Creatinine Ratio 13.4 (10.0-20.0); Blood Urea Nitrogen 9 mg/dL (9-23); Glucose 112 mg/dL (74-106)
[2024-01-05 12:24] LABS: Urine Bacteria None Seen /hpf (None Seen)
[2024-01-05 12:39] LABS: Urine Blood Negative /uL (Negative); Urine Clarity Clear (Clear); Urine Color Yellow (Yellow); Urine Protein, UAD TRACE (Negative); Urine Specific Gravity 1.015 (1.001-1.035); Urine Urobilinogen Normal (Negative); Urine WBC 1 /hpf (0 - 3); Urine pH 6.5 (5.0-9.0)
[2024-01-05] MEDS: cefTRIAXone 1GM/50ML D5W 50 ML IV ONE (15:45)
[2024-01-05] MEDS ORDERED: NITROGLYCERIN 0.4 MG SL TAB SL PRN (15:45)
[2024-01-05] MEDS: AZITHROMYCIN 500MG/ 250ML 250 ML IV ONE (15:45)
[2024-01-05] MEDS: IOHEXOL 350 MG/ML 100ML IJ ONE (16:49)
[2024-01-05 17:36] LABS: INR 1.18 (0.9-1.15); Prothrombin Time 12.4 sec (9.3-11.8)
[2024-01-05] MEDS: FUROSEMIDE 20 MG/2 ML VIAL IV SCH (18:02)
[2024-01-05 20:00] VITALS: PULSE 108; RESP 28; O2SAT 91
[2024-01-05] MEDS: ATORVASTATIN 20 MG TAB PO SCH (23:52)
[2024-01-05] MEDS: methylPREDNISolone SOD SUCC 40 MG/ML VL IV SCH (23:54)
[2024-01-05] MEDS: ENOXAPARIN SOD 80 MG/0.8ML SYRINGE SC SCH (23:54)
[2024-01-06] VITALS (7 sets, daily range): BP systolic 91–145; BP diastolic 54–98; PULSE 92–112; RESP 18–20; TEMP 97.5–98.2; O2SAT 94–100
[2024-01-06] MEDS: LEVOTHYROXINE SODIUM 50 MCG TAB PO SCH (06:38)
[2024-01-06 08:33] LABS: Basophils # (auto) 0 10 ^3/uL (0-0.2); Eosinophils # (auto) 0 10 ^3/uL (0-0.8); Hemoglobin 11.2 g/dL (13.5-17.5); Lymphocytes # (auto) 0.4 10 ^3/uL (0.4-5.4); Monocytes # (auto) 1.1 10 ^3/uL (0-1.3); Monocytes % (auto) 11.3 % (0.0-12.0)
[2024-01-06 08:36] LABS: Basophils % (auto) 0.2 % (0.0-2.0); Hematocrit 34.2 % (41.0-53.0); Lymphocytes % (auto) 3.8 % (10.0-50.0); Mean Corpuscular Hgb Conc. 32.8 g/dL (32.0-36.0); Mean Corpuscular Volume 82.4 fL (80.0-100.0); Neutrophils # (auto) 8.4 10 ^3/uL (1.6-8.6); Neutrophils % (auto) 84.7 % (37.0-80.0); Nucleated Red Blood Cells % 0.2 %; Platelet Count (auto) 644 10^3/uL (140-450); Red Blood Cells 4.15 10^6/uL (4.5-5.90); White Blood Cell 9.9 10^3/uL (4.4-10.8)
[2024-01-06 08:49] LABS: Alanine Aminotransferase 12 U/L (7-40); Alkaline Phosphatase 263 U/L (46-116); Anion Gap 13 (5-15); Aspartate Aminotransferase 18 U/L (13-40); BUN/Creatinine Ratio 13.4 (10.0-20.0); Bilirubin, Total 0.4 mg/dL (0.2-1.0); Blood Urea Nitrogen 11 mg/dL (9-23); Calcium 9.9 mg/dL (8.7-10.4); Carbon Dioxide 26 mmol/L (20-31); Chloride 96 mmol/L (98-107); Glucose 166 mg/dL (74-106); Potassium 3.8 mmol/L (3.5-5.1); Total Protein 8.3 g/dL (5.7-8.2)
[2024-01-06 09:03] LABS: Red Cell Distribution Width 20.5 % (11.8-14.3)
[2024-01-06 09:09] LABS: Sodium 135 mmol/L (136-145)
[2024-01-06] MEDS: cefTRIAXone 1GM/50ML D5W 50 ML IV SCH (10:39)
[2024-01-06] MEDS: AZITHROMYCIN 500MG/ 250ML 250 ML IV SCH (11:51)
[2024-01-07] VITALS (8 sets, daily range): BP systolic 91–131; BP diastolic 55–87; PULSE 73–116; RESP 16–19; TEMP 97.6–98.5; O2SAT 92–99
[2024-01-07 01:59] LABS: Body Fluid Polymorphonuclear 5 % (0-25); Body Fluid Red Blood Cells 466 CUMM (0-2000); Body Fluid White Blood Cells 1135 CUMM (0-200)
[2024-01-07 16:35] LABS: Basophils # (auto) 0 10 ^3/uL (0-0.2); Basophils % (auto) 0.1 % (0.0-2.0); Eosinophils # (auto) 0 10 ^3/uL (0-0.8); Hematocrit 31.5 % (41.0-53.0); Lymphocytes # (auto) 0.2 10 ^3/uL (0.4-5.4); Lymphocytes % (auto) 1.5 % (10.0-50.0); Mean Corpuscular Hemoglobin 25.6 pg (28.0-32.0); Mean Corpuscular Hgb Conc. 31.6 g/dL (32.0-36.0); Mean Corpuscular Volume 80.9 fL (80.0-100.0); Monocytes # (auto) 1.7 10 ^3/uL (0-1.3); Monocytes % (auto) 11.5 % (0.0-12.0); Neutrophils # (auto) 12.8 10 ^3/uL (1.6-8.6); Neutrophils % (auto) 86.9 % (37.0-80.0); Nucleated Red Blood Cells % 0.1 %; Platelet Count (auto) 671 10^3/uL (140-450); White Blood Cell 14.7 10^3/uL (4.4-10.8)
[2024-01-07 16:38] LABS: Red Cell Distribution Width 20.1 % (11.8-14.3)
[2024-01-07 16:48] LABS: Chloride 99 mmol/L (98-107); Potassium 3.9 mmol/L (3.5-5.1); Sodium 136 mmol/L (136-145)
[2024-01-07 16:49] LABS: Anion Gap 10 (5-15); Calcium 9.1 mg/dL (8.7-10.4); Carbon Dioxide 27 mmol/L (20-31)
[2024-01-07 16:54] LABS: BUN/Creatinine Ratio 14.6 (10.0-20.0); Blood Urea Nitrogen 12 mg/dL (9-23); Glucose 200 mg/dL (74-106)
[2024-01-07 19:41] LABS: Rapid Influenza A Negative (Negative); Rapid Influenza B Negative (Negative)
[2024-01-07 19:46] LABS: COVID19 ANTIGEN SOFIA FIA NEGATIVE (NEGATIVE)
[2024-01-07] MEDS: methylPREDNISolone SOD SUCC 40 MG/ML VL IV SCH (22:00)
[2024-01-07 22:22] LABS: Body Fluid Polymorphonuclear 10 % (0-25); Body Fluid Red Blood Cells 227 CUMM (0-2000); Body Fluid White Blood Cells 1343 CUMM (0-200)
[2024-01-08] VITALS (8 sets, daily range): BP systolic 93–121; BP diastolic 56–67; PULSE 75–113; RESP 17–20; TEMP 97.5–99.3; O2SAT 93–99
[2024-01-08 07:08] LABS: Basophils # (auto) 0 10 ^3/uL (0-0.2); Eosinophils # (auto) 0 10 ^3/uL (0-0.8); Lymphocytes # (auto) 0.4 10 ^3/uL (0.4-5.4)
[2024-01-08 07:10] LABS: Basophils % (auto) 0.2 % (0.0-2.0); Hematocrit 30.8 % (41.0-53.0); Hemoglobin 10.2 g/dL (13.5-17.5); Lymphocytes % (auto) 2.7 % (10.0-50.0); Mean Corpuscular Hemoglobin 26.5 pg (28.0-32.0); Mean Corpuscular Hgb Conc. 33.1 g/dL (32.0-36.0); Mean Corpuscular Volume 80.2 fL (80.0-100.0); Monocytes # (auto) 1.7 10 ^3/uL (0-1.3); Monocytes % (auto) 11.9 % (0.0-12.0); Neutrophils # (auto) 12.1 10 ^3/uL (1.6-8.6); Neutrophils % (auto) 85.2 % (37.0-80.0); Nucleated Red Blood Cells % 0.2 %; Red Blood Cells 3.85 10^6/uL (4.5-5.90); Red Cell Distribution Width 19.9 % (11.8-14.3); White Blood Cell 14.2 10^3/uL (4.4-10.8)
[2024-01-08 07:42] LABS: Alanine Aminotransferase 23 U/L (7-40); Albumin 3.2 g/dL (3.2-4.8); Alkaline Phosphatase 175 U/L (46-116); Anion Gap 7 (5-15); Aspartate Aminotransferase 34 U/L (13-40); BUN/Creatinine Ratio 21.6 (10.0-20.0); Bilirubin, Total 0.2 mg/dL (0.2-1.0); Blood Urea Nitrogen 16 mg/dL (9-23); Calcium 9.3 mg/dL (8.7-10.4); Carbon Dioxide 32 mmol/L (20-31); Chloride 101 mmol/L (98-107); Glucose 133 mg/dL (74-106); Potassium 4.1 mmol/L (3.5-5.1); Sodium 140 mmol/L (136-145); Total Protein 6.4 g/dL (5.7-8.2)
[2024-01-08 07:55] LABS: Platelet Count (auto) 619 10^3/uL (140-450)
[2024-01-09] VITALS (9 sets, daily range): BP systolic 95–119; BP diastolic 58–96; PULSE 87–122; RESP 16–22; TEMP 97.1–98.3; O2SAT 91–98
[2024-01-09 07:37] LABS: Chloride 101 mmol/L (98-107); Potassium 3.9 mmol/L (3.5-5.1); Sodium 138 mmol/L (136-145)
[2024-01-09 07:38] LABS: Anion Gap 8 (5-15); Calcium 9.6 mg/dL (8.7-10.4); Carbon Dioxide 29 mmol/L (20-31)
[2024-01-09 07:43] LABS: BUN/Creatinine Ratio 22.2 (10.0-20.0); Blood Urea Nitrogen 18 mg/dL (9-23); Glucose 162 mg/dL (74-106)
[2024-01-09 07:46] LABS: Basophils # (auto) 0 10 ^3/uL (0-0.2); Basophils % (auto) 0.2 % (0.0-2.0); Eosinophils # (auto) 0 10 ^3/uL (0-0.8); Hematocrit 34.4 % (41.0-53.0); Hemoglobin 11.5 g/dL (13.5-17.5); Lymphocytes # (auto) 0.4 10 ^3/uL (0.4-5.4); Lymphocytes % (auto) 2.9 % (10.0-50.0); Mean Corpuscular Hemoglobin 26.9 pg (28.0-32.0); Mean Corpuscular Hgb Conc. 33.3 g/dL (32.0-36.0); Mean Corpuscular Volume 80.7 fL (80.0-100.0); Monocytes # (auto) 1.5 10 ^3/uL (0-1.3); Monocytes % (auto) 9.8 % (0.0-12.0); Neutrophils % (auto) 87.1 % (37.0-80.0); Platelet Count (auto) 636 10^3/uL (140-450); Red Blood Cells 4.27 10^6/uL (4.5-5.90)
[2024-01-09 07:47] LABS: Red Cell Distribution Width 20.4 % (11.8-14.3)
[2024-01-09 09:14] LABS: Large Platelets FEW; Platelet Estimate Increa
[2024-01-09 12:07] LABS: Protein, Body Fluid 3.8 g/dL (.)
[2024-01-10] VITALS (7 sets, daily range): BP systolic 107–125; BP diastolic 59–90; PULSE 99–112; RESP 16–30; TEMP 97–98.3; O2SAT 92–99
[2024-01-10 09:13] LABS: Basophils # (auto) 0.1 10 ^3/uL (0-0.2); Basophils % (auto) 0.5 % (0.0-2.0); Eosinophils # (auto) 0 10 ^3/uL (0-0.8); Hematocrit 36.7 % (41.0-53.0); Lymphocytes # (auto) 0.8 10 ^3/uL (0.4-5.4); Lymphocytes % (auto) 5.2 % (10.0-50.0); Mean Corpuscular Hemoglobin 26.4 pg (28.0-32.0); Mean Corpuscular Hgb Conc. 32.6 g/dL (32.0-36.0); Monocytes # (auto) 1.5 10 ^3/uL (0-1.3); Monocytes % (auto) 10.1 % (0.0-12.0); Neutrophils % (auto) 84.2 % (37.0-80.0); Nucleated Red Blood Cells % 0.1 %; Platelet Count (auto) 673 10^3/uL (140-450); Red Blood Cells 4.53 10^6/uL (4.5-5.90); Red Cell Distribution Width 20.5 % (11.8-14.3); White Blood Cell 15.4 10^3/uL (4.4-10.8)
[2024-01-10 09:15] LABS: Chloride 101 mmol/L (98-107); Potassium 3.9 mmol/L (3.5-5.1); Sodium 139 mmol/L (136-145)
[2024-01-10 09:16] LABS: Anion Gap 7 (5-15); Carbon Dioxide 31 mmol/L (20-31)
[2024-01-10 09:17] LABS: Calcium 9.6 mg/dL (8.7-10.4)
[2024-01-10 09:21] LABS: Glucose 151 mg/dL (74-106)
[2024-01-10 09:22] LABS: BUN/Creatinine Ratio 21.2 (10.0-20.0); Blood Urea Nitrogen 18 mg/dL (9-23)
[2024-01-11] VITALS (7 sets, daily range): BP systolic 91–123; BP diastolic 56–90; PULSE 85–111; RESP 15–19; TEMP 97.7–98; O2SAT 95–97
[2024-01-11 11:25] LABS: Basophils # (auto) 0 10 ^3/uL (0-0.2); Basophils % (auto) 0.1 % (0.0-2.0); Eosinophils # (auto) 0 10 ^3/uL (0-0.8); Eosinophils % (auto) 0.1 % (0.0-7.0); Hematocrit 36.5 % (41.0-53.0); Hemoglobin 11.8 g/dL (13.5-17.5); Lymphocytes # (auto) 0.5 10 ^3/uL (0.4-5.4); Lymphocytes % (auto) 3.3 % (10.0-50.0); Mean Corpuscular Hemoglobin 26.4 pg (28.0-32.0); Mean Corpuscular Hgb Conc. 32.3 g/dL (32.0-36.0); Mean Corpuscular Volume 81.8 fL (80.0-100.0); Monocytes # (auto) 1.9 10 ^3/uL (0-1.3); Monocytes % (auto) 12.3 % (0.0-12.0); Neutrophils % (auto) 84.2 % (37.0-80.0); Nucleated Red Blood Cells % 0.1 %; Platelet Count (auto) 634 10^3/uL (140-450); Red Blood Cells 4.46 10^6/uL (4.5-5.90); Red Cell Distribution Width 20.5 % (11.8-14.3); White Blood Cell 15.4 10^3/uL (4.4-10.8)
[2024-01-11 11:33] LABS: Anion Gap 9 (5-15); Carbon Dioxide 28 mmol/L (20-31); Chloride 100 mmol/L (98-107); Potassium 3.5 mmol/L (3.5-5.1); Sodium 137 mmol/L (136-145)
[2024-01-11 11:34] LABS: Calcium 9.4 mg/dL (8.7-10.4)
[2024-01-11 11:39] LABS: BUN/Creatinine Ratio 25.6 (10.0-20.0); Blood Urea Nitrogen 20 mg/dL (9-23); Glucose 197 mg/dL (74-106)
[2024-01-12 01:00] VITALS: BP 94/58; PULSE 100; RESP 18; TEMP 97.5; O2SAT 95
[2024-01-12 05:00] VITALS: BP 123/77; PULSE 109; RESP 19; TEMP 97.5; O2SAT 94
[2024-01-12 09:00] VITALS: BP 118/84; PULSE 114; RESP 20; TEMP 97.7; O2SAT 96
[2024-01-12 11:18] VITALS: BP 118/84; PULSE 100; RESP 20; TEMP 97.1; O2SAT 96
== END 2024-01-12 11:50 | DRG 291 ==
LOC: ER 09:36 → EDBD 09:36 → TELE 16:09 → TELE-CENTR 21:53 → CENTRAL 01-11 01:34
PROVIDERS: ADMIT Internal Medicine; ATTEND Internal Medicine
PROC: 0W993ZX Drainage of Right Pleural Cavity, Percutaneous Approach, Diagnostic (ICD-10-PCS; principal; 2024-01-06)
PROC: 0W9B3ZZ Drainage of Left Pleural Cavity, Percutaneous Approach (ICD-10-PCS; 2024-01-07)
DX: I11.0 Hypertensive heart disease with heart failure (principal); I50.41 Acute combined systolic (congestive) and diastolic (congestive) heart failure; J96.01 Acute respiratory failure with hypoxia; J18.9 Pneumonia, unspecified organism; J44.0 Chronic obstructive pulmonary disease with (acute) lower respiratory infection; J98.11 Atelectasis; J44.1 Chronic obstructive pulmonary disease with (acute) exacerbation; J91.8 Pleural effusion in other conditions classified elsewhere; Z20.822 Contact with and (suspected) exposure to COVID-19; D64.9 Anemia, unspecified; D75.839 Thrombocytosis, unspecified; E78.5 Hyperlipidemia, unspecified; F17.210 Nicotine dependence, cigarettes, uncomplicated; E03.9 Hypothyroidism, unspecified; Z82.49 Family history of ischemic heart disease and other diseases of the circulatory system; Z85.831 Personal history of malignant neoplasm of soft tissue
CPT/HCPCS: 32555; 36415; 71045; 71275; 80048; 80053; 81001; 83880; 83986; 84484; 85025; 85610; 87070; 87081; 87205; 87426; 87804; 89051; 93306; 93970; 96365; 96368; 96375; 97110; 97116; 97163; 97530; 99291; G0378